=== PATIENT | male | born 1955 | race Hispanic/Latino ===

== ENCOUNTER 2020-10-31 08:55 | Emergency (ER) | payer OTHER ==
[2020-10-31] MEDS ORDERED: Lidocaine 1% 20 ML MDV ONE (09:26)
== END 2020-10-31 09:52 | disposition home or self-care (01) ==
LOC: MADERS 08:55
DX: S01.511A Laceration without foreign body of lip, initial encounter (principal); W22.8XXA Striking against or struck by other objects, initial encounter
CPT/HCPCS: 12011

== ENCOUNTER 2020-11-07 09:08 | Emergency (ER) | payer OTHER | END 2020-11-07 09:51 | disposition home or self-care (01) | LOC: MADERS 09:08 | DX: S01.511D Laceration without foreign body of lip, subsequent encounter (principal); E78.00 Pure hypercholesterolemia, unspecified; Z79.899 Other long term (current) drug therapy; X58.XXXD Exposure to other specified factors, subsequent encounter ==